=== PATIENT | male | born 1970 | race Caucasian/White ===

== ENCOUNTER 2017-02-08 03:22 | Emergency (ER) | payer BC, OTHER ==
[~2017-02-08] VITALS: Ht 172.7 cm; Wt 59.1 kg
[~2017-02-08 03:22] MED LIST: MTF1000T PO; SITA50TA2 PO
[2017-02-08 03:27] VITALS: Ht 172.7 cm; Wt 59.1 kg
--- NOTE | 2017-02-08 03:45 | ERD ---
ER Documentation Chief Complaint Date/Time DATE: 02/08/17 TIME: 03:44 Chief Complaint BIBA RA 41, rt chest sharp pain, in PD custody HPI This is a gentleman in police custody complaining of right-sided chest pain. Said it is sharp. No fevers no chills. No nausea no vomiting. No trauma. No other current complaints. ROS All systems reviewed and are negative except as per history of present illness. Medications Home Meds Reported Medications Metformin* (Glucophage*) 1,000 Mg Tablet, 1000 MG PO BID 07/08/13 Sitagliptin* (Januvia*) 50 Mg Tablet, 50 MG PO DAILY 07/08/13 Allergies Allergies: Coded Allergies: codeine (Verified Allergy, Unknown, 12/29/13) PMhx/Soc History of Surgery: Yes (PILONIDAL CYST) Anesthesia Reaction: No Hx Neurological Disorder: No Hx Respiratory Disorders: Yes (BRONCHITIS) Hx Cardiac Disorders: No Hx Psychiatric Problems: No Hx Miscellaneous Medical Probl: Yes (ARTHRITIS, DM, GOUT) Hx Alcohol Use: No Hx Substance Use: No Hx Tobacco Use: Yes (1 PK DAY) Smoking Status: Current every day smoker Physical Exam Vitals Vital Signs Date Time Temp Pulse Resp B/P Pulse Ox O2 Delivery O2 Flow Rate FiO2 02/08/17 03:27 97.3 117 18 110/77 100 Physical Exam Const: [] Head: Atraumatic Eyes: Normal Conjunctiva ENT: Normal External Ears, Nose and Mouth. Neck: Full range of motion..~ No meningismus. Resp: Clear to auscultation bilaterally Cardio: Regular rate and rhythm, no murmurs Abd: Soft, non tender, non distended. Normal bowel sounds Skin: No petechiae or rashes Back: No midline or flank tenderness Ext: No cyanosis, or edema Neur: Awake and alert Psych: Normal Mood and Affect Procedures/MDM EKG: Rate/Rhythm: [Normal Sinus Rhythm] QRS, ST, T-waves: [No changes consistent w/ acute ischemia] Impression: [No evidence of ischemia or arrhythmia] Chest X-ray 1V Interpreted by me: Soft Tissue: No acute abnormalities Bones: No acute abnormalities Mediastinum/Cardiac Silhouette/Lungs: [No acute abnormalities] Patient's thoracic symptoms have stabilized while in the department and are stable for outpatient follow up. Exam and work up not consistent w/ ischemia, arrhythmia, PE or dissection. Departure Diagnosis: Primary Impression: Chest pain Chest pain type: unspecified Qualified Code: R07.9 - Chest pain, unspecified type Condition: Stable OLIVER ROSADO Feb 08, 2017 03:45
--- NOTE | 2017-02-08 04:26 | RADRPT ---
PROCEDURE: XR Chest. CLINICAL INDICATION: Chest pain TECHNIQUE: Single frontal view of the chest was obtained COMPARISON: 12/29/2013 FINDINGS: The heart and mediastinum are within normal limits. There is hypoinflation of the lungs and mild bibasilar process. Mild interstitial infiltrates at th e lung bases are possible. ECG leads projected over the chest There is no pleural effusion or pneumothorax. IMPRESSION: There is hypoinflation of the lungs and mild bibasilar process. Mild interstitial infiltrates at th e lung bases are possible. RPTAT: HJES .Isai Escalante MD, MD Date Time Electronically viewed and signed by .Isai Escalante MD, MD on 02/08/2017 04:26 .S/
== END 2017-02-08 04:00 | disposition home or self-care (01) ==
LOC: E/R 03:22
DX: R07.9 Chest pain, unspecified (principal); E11.9 Type 2 diabetes mellitus without complications; F17.210 Nicotine dependence, cigarettes, uncomplicated; Z79.84 Long term (current) use of oral hypoglycemic drugs
CPT/HCPCS: 71010; 93005